=== PATIENT | female | born 1940 | race Caucasian/White ===

== ENCOUNTER 2020-05-01 11:31 | Emergency (ER) | payer MEDICARE, OTHER ==
[~2020-05-01] VITALS: Ht 154.9 cm; Wt 57.6 kg
[2020-05-01 11:31] VITALS: BP 157/65
[2020-05-01] MEDS ORDERED: NACL 0.9% 500 ML IV ONE (11:45)
[2020-05-01 12:17] LABS: PROTHROMBIN TIME 10.6 secs (10.8-13.4)
[2020-05-01 12:26] LABS: ALBUMIN 4.6 g/dL (3.4-5.0); ANION GAP 21.1 (8-16); ASPARTATE AMINOTRANSFERASE 19 U/L (15-37); CARBON DIOXIDE 20.9 mmol/L (21-32); CHLORIDE 104 mmol/L (98-107); CREATININE 1.5 mg/dL (0.6-1.3); SODIUM SERUM 142 mmol/L (136-145); TOTAL BILIRUBIN 0.8 mg/dL (0.0-1.0); UREA NITROGEN, BLOOD 51 mg/dL (7-18)
[2020-05-01 12:27] LABS: GLUCOSE 539 mg/dL (74-106)
[2020-05-01] MEDS ORDERED: NACL 0.9% 1,000 ML IV ONE (12:35)
[2020-05-01 12:36] LABS: BASOPHILS % (AUTO) 0.2 % (0.0-2.0); HEMATOCRIT 42.4 % (36-48); HEMOGLOBIN 14.4 g/dL (12.0-16.0); LYMPHOCYTES # (AUTO) 0.7 K/uL (2.5-16.5); LYMPHOCYTES % (AUTO) 6.9 % (20.5-51.1); MEAN CORPUSCULAR HEMOGLOBIN 32 pg (27-31); MEAN CORPUSCULAR HGB CONC 34 g/dL (33-37); MEAN CORPUSCULAR VOLUME 95.2 fL (80-94); MONOCYTES # (AUTO) 0.4 K/uL (0.8-1.0); MONOCYTES % (AUTO) 3.9 % (1.7-9.3); NEUTROPHILS # (AUTO) 9.2 K/uL (1.8-7.7); PLATELET COUNT (AUTO) 302 K/uL (140-450); RED BLOOD CELL COUNT(AUTO) 4.45 MIL/uL (4.20-5.40); RED CELL DISTRIBUTION WIDTH 12.2 % (11.6-13.7); WHITE BLOOD COUNT (AUTO) 10.4 K/uL (4.8-10.8)
--- NOTE | 2020-05-01 13:10 | NUR ---
79/F BIBA ALS FROM HOME FOR ALOC STARTING THIS MORNING. GCS 8/15 (2,5,1). PER REPORT FROM MANAGER LABORATORY, PT WAS RECENTLY D/C FROM [place] AFTER CVA LAST WEEK. PT CONNECTED TO BEDSIDE MONITOR. HX: DM, HTN, CVA WITH LEFT SIDED DEFICITS, HLD
--- NOTE | 2020-05-01 13:16 | NUR ---
PT IN BED, EYES OPENING SPONTANEOUSLY, NOT TRACKING. GRABBING AT UNSEEN OBJECT TOWARDS RIGHT. DOES NOT RESPOND TO VERBAL QUESTIONING.
[2020-05-01] MEDS ORDERED: INSULIN REGULAR, HUMAN 100 UNIT/ML VIAL IVP ONE ×2 (13:35→16:05)
[2020-05-01 13:48] LABS: APPEARANCE,URINE CLEAR (CLEAR); BILIRUBIN,URINE NEGATIVE (NEGATIVE); BLOOD, URINE TRACE-I (NEGATIVE); COLOR,URINE YELLOW (YELLOW); LEUKOCYTE ESTERASE ,URINE NEGATIVE (NEGATIVE); NITRITE, URINE NEGATIVE (NEGATIVE); UGLUCOSE 3+ (NEGATIVE)
[2020-05-01 13:57] LABS: RBC,URINE 0-5 /HPF (0-5); WBC,URINE 0-5 /HPF (0-5)
--- NOTE | 2020-05-01 15:02 | NUR ---
data warehousing specialist at bedside for troponin draw
[2020-05-01 15:30] LABS: ANION GAP 17.4 (8-16); CARBON DIOXIDE 20.8 mmol/L (21-32); CHLORIDE 111 mmol/L (98-107); CREATININE 1.3 mg/dL (0.6-1.3); POTASSIUM 3.2 mmol/L (3.5-5.1); SODIUM SERUM 146 mmol/L (136-145); UREA NITROGEN, BLOOD 46 mg/dL (7-18)
[2020-05-01] MEDS ORDERED: ASPIRIN 81 MG TAB.CHEW PO ONE (15:55)
[2020-05-01] MEDS ORDERED: CRUSHER, PILL MC ONE (15:57)
[2020-05-01 16:01] LABS: GLUCOSE 412 mg/dL (74-106)
--- NOTE | 2020-05-01 16:06 | NUR ---
ASPIRIN TABS CRUSHED AND ADMINISTERED WITH APPLE SAUCE. PT HAD NO DIFFICULTY SWALLOWING.
[2020-05-01] MEDS ORDERED: POTASSIUM CHLORIDE 20% 40 MEQ/15 ML UDC PO ONE (16:10)
--- NOTE | 2020-05-01 16:26 | NUR ---
UPDATED PERSON TO NOTIFY --DAUGHTER NORIS--ON PT CONDITION AND PLAN TO TX TO [facility].
--- NOTE | 2020-05-01 16:32 | NUR ---
PT EDUCATED ON INDICATION FOR POTASSIUM PO, PT VERBALIZED UNDERSTANDING. PT TOOK THE MEDICATION CUP USING RIGHT HAND AND DRANK THE MEDICATION HERSELF, NO DIFFICULTY WITH SWALLOWING. Addendum: 05/01/20 at 1634 by MORALES HOB RAISED UP
--- NOTE | 2020-05-01 16:42 | NUR ---
TO CT SCAN VIA [place]
--- NOTE | 2020-05-01 16:52 | NUR ---
back to bed [address] scan
--- NOTE | 2020-05-01 18:41 | NUR ---
REPORT GIVEN TO CYRIL BUSH AT [facility]
--- NOTE | 2020-05-01 18:52 | NUR ---
DAUGHTER NORIS NOTIFIED OF [facility] TRANSPORT TO [facility]
--- NOTE | 2020-05-01 19:16 | NUR ---
REPORT TO LUIGI RN, TRANSFER OF CARE AT THIS TIME
--- NOTE | 2020-05-01 19:20 | NUR ---
received report from CYRIL Tyler for continuation of care.
--- NOTE | 2020-05-01 20:24 | NUR ---
[facility] TRANSPORT AT BEDSIDE
[2020-05-01 20:32] VITALS: BP 175/83
--- NOTE | 2020-05-01 20:32 | NUR ---
Patient to be transferred to [facility]. Is being transferred due to INSURANCE. Receiving facility has accepting physician and available space. ER physician has signed transfer form. Patient or responsible republican has agreed to transfer and signed form. Patient belongings inventoried and will be sent with patient. Copy of nursing notes, lab reports, EKG, Physicians Orders and X-rays to be sent with patient. Report called to CYRIL BUSH at receiving facility. PT TRANSFERED BY AMBULANCE. VSS UPON DISCHARGE
--- NOTE | 2020-05-01 20:34 | NUR ---
PT TAKEN BY [facility] TO [facility] ROOM 308
== END 2020-05-01 20:34 | disposition short-term general hospital (02) ==
LOC: MED 11:31
DX: R41.82 Altered mental status, unspecified (principal); E11.65 Type 2 diabetes mellitus with hyperglycemia; E86.0 Dehydration; I10 Essential (primary) hypertension; E78.5 Hyperlipidemia, unspecified; Z86.73 Personal history of transient ischemic attack (TIA), and cerebral infarction without residual deficits
CPT/HCPCS: 36415; 70450; 71045; 80048; 80053; 81001; 82009; 82948; 83605; 83880; 84484; 85025; 85610; 85730; 87040; 87086; 93005; 96361; 96374; 96375; 99285; C1758; J1815; Q0092; J7030

== ENCOUNTER 2020-05-10 10:36 | Emergency (ER) | payer MEDICARE, OTHER ==
[~2020-05-10] VITALS: Ht 160 cm; Wt 60.8 kg
--- NOTE | 2020-05-10 10:36 | NUR ---
Patient BIBA ALS, transferred to bed 10. RN evaluating patient at bedside.
--- NOTE | 2020-05-10 10:40 | NUR ---
Pt biba als for altered mental status. Pt presents with a GCS of 10. Pt arousable to pain, unable to understand pt speaking. Skin warm, dry, and intact. Denies pain at this time. Per EMS pt has full left sided deficits from stroke approx 2 wks ago. Positioned for comfort, placed on bedside monitor. VSS
[2020-05-10 10:43] VITALS: BP 95/46
[2020-05-10] MEDS ORDERED: BLOOD GLUCOSE MONITORING 1 DEV DEV FS ONE (10:45)
[2020-05-10] MEDS ORDERED: NACL 0.9% 1,000 ML IV ONE (10:45)
--- NOTE | 2020-05-10 10:45 | NUR ---
Pt placed on 2L NC due to O2 sat 89% on room air, pt 96% at this time.
--- NOTE | 2020-05-10 10:50 | NUR ---
TRAMAINE mclain test performed and sample given to carpenter/labor. Pt tolerated well.
--- NOTE | 2020-05-10 10:53 | NUR ---
250cc yellow urine collected via 15 jordanian straight cath, pt tolerated well. Urine given to cath lab tech
[2020-05-10 10:59] LABS: HEMATOCRIT 44.3 % (36-48); HEMOGLOBIN 14.4 g/dL (12.0-16.0); MEAN CORPUSCULAR HEMOGLOBIN 32 pg (27-31); MEAN CORPUSCULAR HGB CONC 32 g/dL (33-37); MEAN CORPUSCULAR VOLUME 97.5 fL (80-94); PLATELET COUNT (AUTO) 253 K/uL (140-450); RED BLOOD CELL COUNT(AUTO) 4.54 MIL/uL (4.20-5.40); RED CELL DISTRIBUTION WIDTH 13.1 % (11.6-13.7); WHITE BLOOD COUNT (AUTO) 14.8 K/uL (4.8-10.8)
[2020-05-10 11:03] LABS: APPEARANCE,URINE HAZY (CLEAR); BILIRUBIN,URINE 1+ (NEGATIVE); BLOOD, URINE NEGATIVE (NEGATIVE); COLOR,URINE YELLOW (YELLOW); LEUKOCYTE ESTERASE ,URINE NEGATIVE (NEGATIVE); NITRITE, URINE NEGATIVE (NEGATIVE); PH,URINE 5.5 (5.0-9.0); UGLUCOSE NEGATIVE (NEGATIVE)
[2020-05-10 11:12] LABS: LYMPHOCYTES % (MANUAL) 3 % (20-46); MONOCYTES % (MANUAL) 7 % (5-12)
[2020-05-10 11:20] LABS: RBC,URINE NONE SEEN /HPF (0-5); URINE AMORPHOUS URATE 1+ /HPF (None Seen); WBC,URINE 0-5 /HPF (0-5)
[2020-05-10 11:21] LABS: ALBUMIN 3.1 g/dL (3.4-5.0); ANION GAP 19.5 (8-16); ASPARTATE AMINOTRANSFERASE 28 U/L (15-37); CARBON DIOXIDE 20.8 mmol/L (21-32); CHLORIDE 126 mmol/L (98-107); CREATININE 3.4 mg/dL (0.6-1.3); GLUCOSE 314 mg/dL (74-106); POTASSIUM 4.3 mmol/L (3.5-5.1); TOTAL BILIRUBIN 0.5 mg/dL (0.0-1.0)
[2020-05-10 11:24] LABS: SODIUM SERUM 162 mmol/L (136-145); UREA NITROGEN, BLOOD 123 mg/dL (7-18)
[2020-05-10] MEDS ORDERED: NACL 0.45% 1,000 ML IV ONE (11:30)
--- NOTE | 2020-05-10 11:44 | NUR ---
Pt. repositioned for comfort.
[2020-05-10] MEDS ORDERED: cefTRIAXone 1,000 MG VIAL ONE (12:13)
[2020-05-10] MEDS ORDERED: INSULIN REGULAR, HUMAN 100 UNIT/ML VIAL SUBQ ONE (12:25)
--- NOTE | 2020-05-10 13:04 | NUR ---
Pt resting with eyes closed. Visible rise and fall of chest. Remains on awake overnight monitor, will continue to monitor.
--- NOTE | 2020-05-10 14:10 | NUR ---
Spoke to patients family member-- call with update on placement/admission status of patient Charley-- [phone]
--- NOTE | 2020-05-10 14:52 | NUR ---
Report given to Dior at [facility], ETA approx 1 hr
[2020-05-10 15:15] VITALS: BP 119/51
--- NOTE | 2020-05-10 15:16 | NUR ---
Patient to be transferred to [facility]. Is being transferred due to higher level of care. Receiving facility has accepting physician and available space. ER physician has signed transfer form. Patient or responsible libertarian has agreed to transfer and signed form. Patient belongings inventoried and will be sent with patient. Copy of nursing notes, lab reports, EKG, Physicians Orders and X-rays to be sent with patient. Report called to CYRIL Rader at receiving facility. [facility] ambulance service has been called for transfer.
== END 2020-05-10 15:13 | disposition short-term general hospital (02) ==
LOC: MED 10:36
DX: E11.00 Type 2 diabetes mellitus with hyperosmolarity without nonketotic hyperglycemic-hyperosmolar coma (NKHHC) (principal); G93.41 Metabolic encephalopathy; E86.0 Dehydration; I63.9 Cerebral infarction, unspecified; I10 Essential (primary) hypertension; Z20.828 Contact with and (suspected) exposure to other viral communicable diseases
CPT/HCPCS: 36415; 70450; 71045; 80053; 81001; 82550; 83605; 84484; 85025; 87426; 93005; 96361; 96365; 96372; 99291; C1758; J0696; J1815; J7030; J7060; Q0092